=== PATIENT | female | born 1970 | race Caucasian/White ===

== ENCOUNTER 2021-11-28 21:43 | Emergency (ER) | payer MEDICAID, OTHER ==
[~2021-11-28] VITALS: Ht 157.5 cm; Wt 81.6 kg
[2021-11-28 21:59] VITALS: BP_SYST 112
--- NOTE | 2021-11-28 22:06 | NUR ---
51 YR OLD FEMALE WITH COMPLAINT F ETOH, BROUGHT IN FROM A BAR BY BLS MANAGER INVENTORY CONTROL. PER MANAGER INVENTORY CONTROL PT HAS BEEN DRINKING SIONCE NOON TODAT BECAUSE THE SAME TEAM RESPONDED TO A CALL FOR A DOMESTIC DISTURBANCE FOR THE SAME PT AT THAT TIME. PT ARRIVED WITH VOMIT ON HER CLOTHING, PT IS RESPONSIVE TO VERBAL STIMULI AND IS ACTIVELY CRYING. PT DENIES ANY HEALTH HISTORY AND STATES SHE HAS NOT TAKEN ANY DRUGS BUT ACKNOWLEDGES CONSUMING ALCOHOLIC DRINKS. 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 MD RIVERS AT THE BEDSIDE
--- NOTE | 2021-11-29 00:12 | NUR ---
PT IN BED ASLEEP, PT EASILY AROUSABLE WITH TACTILE STIMULI. PT DOES NOT HAVE A CELL PHONE TO CALL SOMEONE FOR A RIDE HOME. PT ENCOUARGED TO REST. WILL MONITOR NEEDED
--- NOTE | 2021-11-29 01:49 | NUR ---
PT ASSISTED TO USE THE RESTROOM ON THE BEDSIDE COMMODE. PT PLACED BACK IN BED WITH BLANKET.
--- NOTE | 2021-11-29 02:11 | NUR ---
PT IN BED EYES CLOSED, NO ACUTE DISTRESS. WILL MONITOR NEEDED
[2021-11-29 07:44] VITALS: BP_SYST 124
--- NOTE | 2021-11-29 07:45 | NUR ---
Stable VSS Afebrile Pain free LOC x 3 Able to ambulate safely and tolerate PO intake. MD has reassessed and Dc'd home Taxi arranged Ambulated to exit
== END 2021-11-29 07:45 | disposition home or self-care (01) ==
LOC: SED 21:43
DX: F10.129 Alcohol abuse with intoxication, unspecified (principal); Y90.8 Blood alcohol level of 240 mg/100 ml or more
CPT/HCPCS: 99283; G0482; 36415